=== PATIENT | female | born 2005 | race Caucasian/White ===

== ENCOUNTER 2024-04-18 09:19 | Emergency (ER) | payer SELFPAY ==
[2024-04-18 10:08] LABS: Bilirubin Negative (Negative); Blood, Urine Small (Negative); Clarity Clear (Clear); Glucose, Urine (Dipstick) Negative (Negative); Ketone, Urine Negative (Negative); Leukocyte Negative (Negative); Nitrite Negative (Negative); Protein, Urine (Dipstick) Negative (Neg-Trace); Urobilinogen 0.2 mg/dL (Less than 2)
[2024-04-18 10:12] LABS: Specific Gravity, Urine Greater/Equal 1.030 (1.005-1.030)
[2024-04-18 10:20] LABS: Bacteria/HPF 1+ HPF (None Seen); CAUTI Indications for Culture Pelvic or flank pain; Mucous/LPF 1+ LPF (<2+); WBC/HPF 0-3 HPF (0-3)
[2024-04-18 10:21] LABS: Urine Culture Reflex No No
[2024-04-18 23:21] LABS: Chlam.trachomatis by PCR,Urine Not Detected (NotDetected); GC N.gonorrhoeae PCR,UrineVOID Not Detected (NotDetected)
== END 2024-04-18 11:15 | disposition home or self-care (01) ==
LOC: NAV ERS 09:19
DX: A59.9 Trichomoniasis, unspecified (principal)
CPT/HCPCS: 81001; 87491; 87591; 99283